=== PATIENT | female | born 1995 | race Two or more races ===

== ENCOUNTER 2021-05-17 00:34 | Emergency (ER) | payer OTHER ==
[~2021-05-17] VITALS: Ht 167.6 cm; Wt 131.5 kg
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
--- NOTE | 2021-05-17 02:42 | NUR ---
PT IS MEDICALLY STABLE FOR D/C. Patient discharged to home in stable condition. Written and verbal after care instructions given. Patient verbalizes understanding of instruction.
[2021-05-17 02:43] VITALS: BP 158/88
== END 2021-05-17 02:43 | disposition home or self-care (01) ==
LOC: ER 00:48
DX: R51.9 Headache, unspecified (principal); M54.2 Cervicalgia; R07.89 Other chest pain; V49.49XA Driver injured in collision with other motor vehicles in traffic accident, initial encounter; Y93.89 Activity, other specified; Y92.488 Other paved roadways as the place of occurrence of the external cause; Y99.8 Other external cause status
CPT/HCPCS: 70450-TC; 71045-TC; 72125-TC